=== PATIENT | female | born 1980 ===

== ENCOUNTER 2023-01-20 12:56 | Outpatient (RCR) | payer OTHER, SELFPAY ==
--- NOTE | 2023-01-20 14:13 | PTOPEVAL1 ---
Assessment and note entered by JT File, PT Evaluation Information Assessment Status Evaluation Diagnosis neck pain, R side, R shoulder pain Onset 12/11/22 Subjective Information patient reports she has been having pain/symptoms since 2021. she reports she has tried therapy at another outpatient facility this year for this pain for about 12 visit. she reports since then she has had 2 injections to the neck back (last week and yesterday). she reports she is in much better shape now. she reports she has pain down the neck and into the R shoulder/ shoulder blade. she reports driving she would have to hold her arm up. she reports the pain runs down to the outside of the shoulder and down the middle of her back. she reports she has had a stent of similar symptoms on the L side about 5 years ago. she reports no NTB into the hands. she reports she had an MRI of the lumbar spina in [place]. she reports she also had an MRI of the neck in [place]. she reports remembering hearing DDD of the cervical spine (4,5,6). she reports she was told surgery is eventually going to have to happen. she reports she has increased pain now with reaching overhead, reaching into the washing machine. she reports sometimes pain will not be immediate, but reports she will have weakness the next day. she reports she has an eample of folding laudry at home and her arm being fatigued. Reported Pain Level Pain Score 3: Self Report Assessment PT Clinical Summary mrs. reyes is a 42 yo woman who presents to skilled PT with an order for evaluation and treatment of R sided neck pain. upon evaluation this date, she presents with signs and symptoms consistent with a R cervical C7 radiculopathy. she displays weakness, decreased rom, and positive cervical special tests for radiculopathy. she would benefit from skilled PT to address her objective/functional deficits and progress towards a return to her prior level functional activity performance/quality of life. patient and patient's MD would like her to try dry needling in addition to traditional PT. Plan of Care Interventions Electrical Stimulation,Hot Pack/Cold Pack,Manual Therapy,Neuro Re-education,Patient/Caregiver Educati,Therapeutic Activities,Therapeutic Exercise,Other PT Services Indicated Yes
--- NOTE | 2023-02-06 09:43 | PTOPDC ---
Assessment and note entered by JT File, PT Evaluation Information Assessment Status Discharge Diagnosis neck pain, R side, R shoulder pain Onset 12/11/22 Subjective Information patient reports she feels Alright this date. she reports overall she feels about the same. she reports she is happy knowing exercises to prevent her condition from getting any worse. Reported Pain Level Pain Score 3: Self Report Assessment PT Clinical Summary mrs. reyes presents to skilled PT for her 6th skilled PT visit. she has made progress towards goals, but still lacks full goal achievement as of this date. she continues to present with mm weakness, decreased rom, and pain. she will DC skilled PT services and continue with HEP independent at home. she was instructed to return to skilled PT if a flare up of pain returns. Plan of Care Interventions Electrical Stimulation,Hot Pack/Cold Pack,Manual Therapy,Neuro Re-education,Patient/Caregiver Educati,Therapeutic Activities,Therapeutic Exercise,Other PT Services Indicated Yes Treatment Frequency and DC to independent HEP Duration
== END 2023-02-06 10:48 | disposition home or self-care (01) ==
LOC: CHSPT 12:56
DX: M54.2 Cervicalgia (principal)
CPT/HCPCS: 97012; 97014; 97110; 97161; G0283